=== PATIENT | female | born 1975 | race Caucasian/White ===

== ENCOUNTER 2016-10-20 09:54 | Outpatient (CLI) | payer OTHER ==
--- NOTE | 2016-10-20 11:31 | DIAGNOSTIC IMAGING REPORT ---
PROCEDURE: US COMPLETE PELVIC W/TRANSVAG INDICATION: PELVIC PAIN TECHNIQUE: Transabdominal and endovaginal acosta scale and color Doppler sonographic images of the female pelvis were obtained. COMPARISON: None. FINDINGS: There is a large of 19 mm gallstone present in the gallbladder. TRANSABDOMINAL SCANS: The uterus is of normal size 7.2 x 6.8 x 5.0 cm Kidneys are normal. TRANSVAGINAL SCANS: The uterus is anteverted. Myometrium is normal. The endometrium measures 5.5 mm. Right ovary is normal measuring 3.9 x 2.6 x 1.5 cm and contains a 2.7 cm exophytic cyst. The left ovary is normal measuring 3.4 x 2.4 x 2.2 cm. Good blood flow is noted in both ovaries. IMPRESSION: 1. 2.7 cm right ovarian exophytic cyst. 2. Cholelithiasis.
== END 2016-10-20 23:00 ==
LOC: US SRH 09:54
DX: N92.0 Excessive and frequent menstruation with regular cycle (principal); N83.291 Other ovarian cyst, right side